=== PATIENT | female | born 1995 | race Caucasian/White ===

== ENCOUNTER → 2018-05-06 14:01 | Outpatient (CLI) | payer OTHER, SELFPAY ==
--- NOTE | 2018-05-06 14:05 | US_ITS ---
US transvaginal Ordering Physician: Jake Beaver MD Patient Age: 22 years: Female HISTORY: ITS.REASON: PELVIC PAIN Pelvic pain. Endometriosis history TECHNIQUE: Transvaginal pelvic ultrasound history of endometriosis COMPARISON :Previous transvaginal pelvic ultrasound 11/03/2016 FINDINGS UTERUS: 6.4 cm length x 2.4 cm x 3.2 cm. Endometrial stripe of 4 mm AP thickness. No uterine mass Right ovary 3.9 x 2.4 x 3.1 cm Left ovary 3.9 x 2.1 x 2.1 cm. Numerous small follicular cyst seen throughout both right & left ovary. No peripheral appearance about the margin of the right ovary more so than left. This pattern is suggestive of polycystic changes ovaries, & was was previously noted on chamber 2017 ultrasound. Good color Doppler flow both ovaries. No large or dominant ovarian cyst identified. No ovarian pelvic mass identified Only scant, trace free fluid cord cul-de-sac.. Appears Physiologic ----IMPRESSION: ------ Uterus normal in size. Ovaries upper normal in size with numerous follicular cysts bilaterally. With polycystic ovary appearance, again seen
== END ==
PROVIDERS: Family Provider Family Medicine; PCP Family Medicine; Visit Provider Obstetrics & Gynecology
DX: R10.2 Pelvic and perineal pain (principal)
CPT/HCPCS: 76830

== ENCOUNTER → 2018-05-20 15:40 | Outpatient (CLI) | payer OTHER, SELFPAY ==
[2018-05-20 15:56] LABS: Microscopic, Urine URINE MICROSCOPIC (MICROSCOPIC)
[2018-05-20 16:10] LABS: Basophils # 0.1 K/mm3 (0-0.2); Basophils % 0.6 % (0.1-2.0); Eosinophils # 0.1 K/mm3 (0.0-0.4); Eosinophils % 1.2 % (0.1-12.0); Hematocrit 40.5 % (37.0-47.0); Hemoglobin 12.4 g/dL (12.2-16.2); Lymphocytes # 2.2 K/mm3 (0.7-4.5); Mean Corpuscular HGB Conc 30.6 g/dL (31.8-35.4); Mean Corpuscular Hemoglobin 23.5 pg (27.0-31.2); Mean Corpuscular Volume 76.8 fl (81-99); Mean Platelet Volume 8.2 fl (7.4-10.4); Monocytes # 0.5 K/mm3 (0.1-1.0); Monocytes % 5.6 % (1.7-9.3); Neutrophils # 5.6 K/mm3 (1.8-7.8); Neutrophils % 66.6 % (37.0-80.0); Platelet Count 244 K/mm3 (142-424); Red Blood Count 5.28 M/mm3 (4.20-5.40); Red Cell Distribution Width 13.4 % (11.5-17.5); White Blood Count 8.3 K/mm3 (4.8-10.8)
[2018-05-20 16:19] LABS: Appearance,Urine CLEAR (Clear); Bilirubin,Urine Negative (Negative); Blood, Urine Negative (Negative); Color,Urine YELLOW (Yellow); Glucose,Urine (UA) Negative (Negative); Ketones,Urine Negative (Negative); Leukocyte Esterase,Urine Negative (Negative); Nitrate,Urine Negative (Negative); Protein,Urine Negative (Negative); Specific Gravity, Urine 1.015 (1.005-1.030); Urobilinogen,Urine 0.2 EU/dl (0.2)
[2018-05-20 16:21] LABS: Urine Pregnancy, HCG Qual. Negative (Negative)
[2018-05-20 16:27] LABS: Bacteria,Urine 1+ /lpf; Squamous Epithelial Cell,Urine Occasional #/hpf (0-5); WBC,Urine Occasional #/hpf (0-3)
[2018-05-20 18:43] LABS: Albumin Level 3.9 gm/dL (3.4-5.0); Anion Gap 10.3 mEq/L (5-15); Blood Urea Nitrogen 9 mg/dL (7-18); Carbon Dioxide 29 mmol/L (21.0-32.0); Chloride 107 mmol/L (98-107); Estimated Glomerular Filt Rate 125 ml/min (>60); GFR (African American) 151 ML/MIN (>60); Glucose 88 mg/dL (74-106); Potassium 4.3 mmoL/L (3.5-5.1); Sodium 142 mmol/L (136-145)
[2018-05-20 18:56] LABS: Alanine Aminotransferase 21 U/L (12-78); Albumin/Globulin Ratio 1.2 (1.1-1.8); Alkaline Phosphatase 79 U/L (46-116); Aspartate Amino Transferase 10 U/L (15-37); Bilirubin,Total 0.2 mg/dL (0.2-1.0); Globulin 3.3 gm/dl (1.3-3.2); Total Protein,Serum 7.2 gm/dL (6.4-8.2)
== END ==
PROVIDERS: Visit Provider Obstetrics & Gynecology
DX: Z01.818 Encounter for other preprocedural examination (principal); R10.2 Pelvic and perineal pain; N80.9 Endometriosis, unspecified
CPT/HCPCS: 36415; 80053; 81001; 81025; 85025

== ENCOUNTER 2020-11-27 18:41 | Emergency (ER) | payer MEDICAID, SELFPAY ==
[2020-11-27 18:50] VITALS: BP 130/78; PULSE 88; RESP 20; TEMP 36.7; O2SAT 98; BMI 24.2
--- NOTE | 2020-11-27 18:56 | XR_ITS ---
PROCEDURE: XR ANKLE RT MIN 3V Referring Doctor: Rebecca Andrade Patient Age:25Y CLINICAL INDICATION: rolled ankle several days ago Right ankle pain pain lateral styloid process COMPARISON: No exams were available for comparison TECHNIQUE: Right ankle: 3 View AP, Oblique, Lateral nonweightbearing FINDINGS: Right ankle-no fracture or dislocation.-specifically the lateral malleolus is intact with no fracture evident. There is mild soft tissue swelling overlying the lateral malleolus which may reflect ankle sprain. No lytic or blastic change. There is normal mineralization. The joint spaces are well-preserved. No significant degenerative/arthritic changes. No erosive changes evident. .. Normal relationships at the ankle mortise. The dome of the talus intact IMPRESSION: Right ankle. Intact with no fracture evident Mild soft tissue swelling overlying lateral malleolus Dictated by: Win Amador MD 11/28/2020 11:31 Win Amador MD in [place] 11/28/2020 11:31
--- NOTE | 2020-11-27 19:02 | HMH.EDUTC ---
[facility] [place] Clinical Impression: Right ankle sprain Qualifiers: Encounter type: initial encounter Involved ligament of ankle: posterior talofibular ligament Qualified Code(s): S93.491A - Sprain of other ligament of right ankle, initial encounter Disposition: Home, Self-Care Condition on Discharge: Good Instructions: DI for Ankle Sprain Additional Instructions: Follow up with Dr Osei to discuss PT Referrals: Beatrice Arellano [Primary Care Provider] - Time of Disposition: 19:49 Medical Decision Making - Abimael Inquiry Pt receiving controlled substance: No Vital Signs: 11/27/20 18:50 Temperature 98.0 F Temperature Source Oral Pulse Rate [Right Brachial] 88 Respiratory Rate 20 Blood Pressure [Right Arm] 130/78 Blood Pressure Mean [Right Arm] 95 Blood Pressure Source [Right Arm] Automatic Cuff Blood Pressure Position [Right Arm] Sitting 02 Sat by Pulse Oximetry 98 Oxygen Delivery Method Room Air Orders (Tests/Meds): ORDERS Category Date Time Status XR ankle RT min 3V Stat Exams 11/27/20 18:56 Taken - Radiology Data #1 Image(s): Ankle Image Reviewed: Yes I reviewed the patient's radiology image Preliminary Findings: Normal/NAD, No Fracture Seen [facility] [place] - General Stated complaint: / 11/18 rolled right ankle and fell Time Seen by Provider: 11/27/20 19:02 - History of Present Illness Provider Complaint: Right ankle pain. Slid on icy steps on 11/18 and rolled her right ankle. It is still painful, swollen and keeps rolling again like it is unstable. Onset (ago): day(s) (9) Location: right, lower extremity Relieving factors: none Exacerbating factors: none Associated symptoms: denies other symptoms Treatments prior to arrival: none - Related Data Allergies Allergy/AdvReac Type Severity Reaction Status Date / Time No Known Allergies Allergy Verified 06/10/18 14:04 [facility] History - Hepatitis A Screen Attestation statement:: This patient has been screened for Hepatitis A risk factors. I have reviewed the patient's past medical history: Yes Medical History: Reports:: MRSA Denies:: Cancer, Diabetes Mellitus Type 1, Diabetes Mellitus Type 2, Seizures Other Medical History: Reports: Other. Denies: Blood Transfusion Reaction Comment: Hearing loss Lt. ear. Endometriosis. IBS. PELVIC CONGESTION Other Surgeries: Yes: Other Amputation: No Fractures: No Comment: 2009,2010,2016--Lt. ear drum surgery. 2017--Dx. LSC. 05/23/2018--DX Lap. Lysis of adhesions. - Social History Smoking Status: Never smoker Alcohol Intake: never Substance Use Type: denies use Occupational Status: employed Housing: house Household Members: family Family Hx:: Diabetes, Stroke, Hypertension, Cancer TUNNEL MAN history: No TUNNEL MAN history ROS Obtained: Yes All systems reviewed & no additional complaints - Musculoskeletal Musculoskeletal: Reports joint pain Physical Exam - General General appearance: alert, in no apparent distress - Head Head exam: normocephalic - Eye Eye exam: Present: PERRL - ENT ENT exam: Present: normal oropharynx - Respiratory Respiratory exam: Present: normal lung sounds bilaterally - Cardiovascular Cardiovascular exam: Present: regular rate, normal rhythm - Expanded Lower Extremity Exam Right Ankle exam: Present: full ROM, tenderness, swelling (posterior to medial malleolus) - Neurological Exam Neurological exam: Present: alert, oriented X3 - Psychiatric Psychiatric exam: Present: normal affect, normal mood - Skin Skin exam: Present: warm, dry, intact
[2020-11-27 20:08] VITALS: BP 130/78; PULSE 88; RESP 20; TEMP 36.7; O2SAT 98
== END 2020-11-27 20:10 | disposition home or self-care (01) ==
PROVIDERS: Emergency Provider Physician Assistant; PCP Family Medicine
DX: S93.491A Sprain of other ligament of right ankle, initial encounter (principal); W10.9XXA Fall (on) (from) unspecified stairs and steps, initial encounter; Y92.89 Other specified places as the place of occurrence of the external cause
CPT/HCPCS: 29515; 73610; 99202; G0463